=== PATIENT | male | born 1980 | race Caucasian/White ===

== ENCOUNTER 2020-05-29 10:12 | Inpatient (IN) | payer OTHER ==
[~2020-05-29] VITALS: Ht 172.7 cm; Wt 99.8 kg
[~2020-05-29 10:12] MED LIST: BUSPAR 10MG10 MG PO; DOSS PO; EFFEXOR XR75 MG PO; HYDROXYZINE HCL50 MG PO; LAMICTAL TAB 1100 MG PO; LO-DOSE ASPIRIN81 MG PO; NALTREXONE HCL50 MG PO; OMEPRAZOLE20 MG PO; ONDANSETRON ODT4 MG PO; PERCOCET 7.5-31 EACH PO; PROPRANOLOL HCL20 MG PO; TENEX 1 MG TAB1 MG PO; TESTOSTERO200 MG/1 M INJ; ZANTAC 7575 MG PO
[2020-05-29 10:56] LABS: RED BLOOD COUNT 4.45 M/UL (4.20-5.50); WHITE BLOOD COUNT 6.1 K/UL (4.5-11.0)
[2020-05-29 11:25] LABS: BUN/CREATININE RATIO 12 (0-10)
[2020-05-29] MEDS ORDERED: CITALOPRAM HBR10 MG PO (16:03)
[2020-05-29] MEDS ORDERED: PREVACID15 MG PO (16:07)
[2020-05-30 04:07] LABS: HEMOGLOBIN 13.4 gm/dl (14.0-17.5); RED BLOOD COUNT 4.03 M/UL (4.20-5.50)
[2020-05-30 04:11] LABS: WHITE BLOOD COUNT 4.2 K/UL (4.5-11.0)
[2020-05-30 04:39] LABS: BUN/CREATININE RATIO 12 (0-10)
[2020-05-31 04:06] LABS: HEMOGLOBIN 14.4 gm/dl (14.0-17.5); RED BLOOD COUNT 4.31 M/UL (4.20-5.50); WHITE BLOOD COUNT 3.4 K/UL (4.5-11.0)
[2020-05-31 04:39] LABS: BUN/CREATININE RATIO 10 (0-10)
== END 2020-05-31 17:05 | disposition home or self-care (01) | DRG 439 ==
LOC: ER1 10:12 → CDU 12:41 → MED SURG 4 16:41
PROVIDERS: Physician Assistant; Physician Assistant Medical; ADMIT Internal Medicine
DX: K85.20 Alcohol induced acute pancreatitis without necrosis or infection (principal); D61.818 Other pancytopenia; K21.9 Gastro-esophageal reflux disease without esophagitis; F10.10 Alcohol abuse, uncomplicated; F41.8 Other specified anxiety disorders; Z96.653 Presence of artificial knee joint, bilateral; E87.6 Hypokalemia; Z98.52 Vasectomy status; Z90.89 Acquired absence of other organs
CPT/HCPCS: 36415; 80053; 82150; 83690; 83735; 84132; 85025; 85027; 93005; 96374; 96375; 99285; J1650; J2270; J2405; J2550; J3411; J3475; J3480; J7030; Q9967; U0002